=== PATIENT | male | born 1995 | race Caucasian/White ===

== ENCOUNTER 2020-12-18 06:03 | Emergency (ER) | payer MEDICAID, SELFPAY ==
--- NOTE | 2020-12-18 | ECG_ITS ---
Test Reason : CHEST PAIN Blood Pressure : / mmHG Vent. Rate : 051 BPM Atrial Rate : 051 BPM P-R Int : 166 ms QRS Dur : 088 ms QT Int : 410 ms P-R-T Axes : 062 074 050 degrees QTc Int : 377 ms Sinus bradycardia with marked sinus arrhythmia Early repolarization Otherwise normal ECG When compared with ECG of 18-DEC-2020 06:15, No significant change was found Referred By: Generic ED Physician Electronically Signed By:SEAMUS POLO MD
--- NOTE | ~2020-12-18 | XR_ITS ---
EXAMINATION: XR CHEST CLINICAL INFORMATION: Chest pain COMPARISON: None TECHNIQUE: 2 views of the chest were obtained. FINDINGS: No significant abnormality is noted involving the heart, lungs, mediastinum, bony thorax or soft tissues. XR/XR chest 2V IMPRESSION: Unremarkable chest examination.
[2020-12-18 06:13] VITALS: BP 121/64; PULSE 57; RESP 16; TEMP 36.7; O2SAT 99; BMI 29.6
--- NOTE | 2020-12-18 06:15 | ECG_ITS ---
Test Reason : CP Blood Pressure : / mmHG Vent. Rate : 060 BPM Atrial Rate : 060 BPM P-R Int : 162 ms QRS Dur : 086 ms QT Int : 372 ms P-R-T Axes : 052 075 044 degrees QTc Int : 372 ms Normal sinus rhythm with sinus arrhythmia Early repolarization Normal ECG No previous ECGs available Referred By: Elan Acharya Electronically Signed By:SEAMUS POLO MD
[2020-12-18 06:18] VITALS: PULSE 53
--- NOTE | 2020-12-18 06:41 | ED_ITS ---
HPI - Chest Pain General Chief Complaint: Chest Pain Stated Complaint: chest pain Time Seen by Provider: 12/18/20 06:27 Source: patient Mode of arrival: ambulatory Limitations: no limitations History of Present Illness HPI narrative: 25-year-old male who presents emergency department for evaluation of chest pain that occurred while he was working out at around 0515 hours. Patient states that his mother came over last night and COVID very spicy food, he ate this food around 8:00 p.m.. States that he got up this morning at 4:00 a.m. and he atepeanut butter and toast which is his usual breakfast. He then went to the gym to workout. He states that he took his usual pre workout supplement Lite . he states that he was doing his usual workout routine, he was bench pressing he developed pain in his left chest. States the pain came on gradually but then got progressively worse. The pain was a tightness which was constant and was 8/10. At the time of presentation, the pain is 5/10. He had associated nausea. He denied neck pain, jaw pain, arm pain, lightheadedness, dizziness, diaphoresis, shortness of breath or dyspnea on exertion. Patient denies like pain. He denies any long recent trips. Patient is vaccinated for COVID-19. He received his 2nd dose in October of 2020. Related Data Allergies Allergy/AdvReac Type Severity Reaction Status Date / Time No Known Allergies Allergy Verified 12/18/20 06:39 Review of Systems Review of Systems: Yes all other systems are reviewed and are negative [facility] Past Medical History [facility] Narrative: Past medical history: None . Past surgical history: None. Social history: Patient patient denies tobacco use. He states that he rarely drinks alcohol. He denies drug use. Social History Social History Advance Directives: No Physical Exam Vital Signs: Vital Signs: Last Vital Signs Temp 98.1 F 12/18/20 06:13 Pulse 46 L 12/18/20 10:00 Resp 16 12/18/20 10:00 BP 117/60 12/18/20 10:00 Pulse Ox 100 12/18/20 08:00 Body Mass Index 29.6 Const: General: cooperative and healthy appearing Orientation/consciousness: oriented to person and oriented to place Limit ations: no limitations HENMT: Head: Yes normal to inspection, Yes normocephalic and Yes atraumatic Ears: external ears normal General nose exam: Normal external nose present Face and sinus: Yes normal facial exam Mouth: Normal oral and palatal mucosa present Throat: Yes posterior oropharynx normal Eyes: Periorbital: periorbital findings normal Eyelids: Yes eyelids normal Conjunctivae: conjunctivae normal Sclerae: sclerae normal Corneas: corneas normal Pupils: Equal, round and reactive pupils present Direct Ophthalmoscopy: normal light reflex Neck: Neck: Yes full ROM, Yes no lymphadenopathy, Yes no meningeal signs, Yes trachea midline and Yes supple Chest: Chest palpation & inspection: normal inspection of the chest and tenderness ( left pectoralis muscles, L the posterior chest) Resp: Effort & Inspection: normal respiratory effort and able to speak in complete sentences Auscultation: clear to auscultation bilaterally Cardio: Rate: regular rate Rhythm: regular rhythm Heart sounds: S1 normal heart sound present, S2 normal heart sound present and no murmurs GI: Inspection: Yes normal to inspection Palpation (GI): Soft to palpation, nontender, no guarding, not rigid and No hepatosplenomegaly present : General: Yes no CVA tenderness Back/Spine/Pelvis: Back: no CVA tenderness Cervical Spine: normal cervical lordosis Thoracic/Lumbar Spine: thoracic and lumbar spine normal to inspection Skin: Lesions: no lesions Rashes: no rashes Wounds: no wounds Neuro: General: oriented to person, oriented to place and no meningeal signs Cranial nerves: Yes CN's II-XII intact bilaterally and Yes Equal, round and reactive pupils present Cognition (Neuro): normal cognition Motor exam (neuro): 5/5 motor strength present throughout Extrem: General: Yes normal to inspection and Yes full ROM Psych: Appearance: well kempt Mental Status: mental status grossly normal Speech and movement: Normal speech and movement present Affect: normal affect Attitude: cooperative Thought process: Normal thought process present Thought content: Normal thought content present Course Course Course Narrative: 25-year-old male who presents emergency department for evaluation of left-sided chest tenderness which began while he was lifting weights this morning. Patient's pain is a tightness which has been constant. Vital signs were normal. Physical examination revealed left anterior and posterior wall tenderness. Cardiac workup was ordered including a EKG and chest x-ray. Patient has no significant cardiac risk factors. His chest pain was treated with ibuprofen 600 mg orally. 0805: Patient's laboratory evaluation was unremarkable except for a detectable troponin at 5.7. Chest x-ray revealed no pneumothorax. I did discuss the elevated troponin with the patient, the patient will have a repeat 3 hour troponin at 10:00 a.m.. The patient had minimal pain relief with the oral ibuprofen. The patient was ordered to get 4 baby aspirin to chew and acetaminophen 975 mg orally. 1103: The patient's repeat EKG was unchanged from the 1st EKG. Repeat troponin was 7.2, this was not greater than 50% of the 1st troponin. At this time, I do not think the patient's pain is secondary to acute coronary syndrome and is most likely caused by costochondritis. I did discuss this with the patient. Patient was advised to take ibuprofen 600 mg 3 times a day for the next 4 days. The patient was given verbal and printed instructions prior to discharge. The patient was advised to follow-up with their PCP in 2 days and to return to the emergency department if their symptoms get worse or if they develop any new symptoms that are concerning to them MDM - Chest Pain Lab Data Result diagrams: 12/18/20 06:56 12/18/20 06:56 Labs: Lab Results 12/18/20 12/18/20 12/18/20 Range/Units 06:56 06:56 06:56 WBC 7.0 (4.8-10.8) X10*3/uL RBC 5.28 (4.60-5.80) X10*6/uL Hgb 14.3 (14.0-18.0) g/dl Hct 44.2 (42-52) % MCV 83.7 (80-98) fL MCH 27.1 (27.0-33.0) pg MCHC 32.4 (31.0-36.0) g/dl RDW 13.2 (11.0-16.0) % Plt Count 192 (160-400) X10*3/uL MPV 10.1 (9.4-12.4) fL Immature Gran % (Auto) 0.3 (0.0-0.4) % Neut % (Auto) 65.0 (45-73) % Lymph % (Auto) 20.7 (20-40) % [place] % (Auto) 12.6 H (2-11) % Eos % (Auto) 1.0 (0-4) % Baso % (Auto) 0.4 (0-2) % Lymph # (Auto) 1.4 (1.2-4.9) X10*3/uL [place] # (Auto) 0.9 (0.1-1.2) X10*3/uL Eos # (Auto) 0.1 (0.0-0.4) X10*3/uL Baso # (Auto) 0.0 (0.0-0.2) X10*3/uL Abs Immat Gran (auto) 0.02 (0.00-0.03) X10*3/uL Absolute Neuts (auto) 4.5 (2.0-8.3) X10*3/uL Absolute Nucleated RBC 0.000 (0.0-0.012) X10*3/uL Nucleated RBC % (auto) 0.0 (0.0-0.2) /100WBC Sodium 139 (135-145) mmol/L Potassium 4.4 (3.3-5.1) mmol/L Chloride 107 (96-108) mmol/L Carbon Dioxide 28 (22-29) mmol/L Anion Gap 8 L (12-20) BUN 23 H (9-16) mg/dL Creatinine 1.15 (0.5-1.4) mg/dL Estim Creat Clear Calc 103.6 Estimated GFR > 60 Random Glucose 99 (60-115) mg/dL Calcium 9.2 (8.4-10.2) mg/dL Total Bilirubin 0.6 (0.0-1.0) mg/dL AST 15 (5-37) U/L ALT 12 (0-40) U/L Alkaline Phosphatase 80 (39-117) U/L Troponin I High Sens 5.7 (<3.5-35.0) ng/L Total Protein 6.7 (6.5-8.0) g/dL Albumin 4.5 (3.5-5.0) g/dL 12/18/20 Range/Units 09:59 WBC (4.8-10.8) X10*3/uL RBC (4.60-5.80) X10*6/uL Hgb (14.0-18.0) g/dl Hct (42-52) % MCV (80-98) fL MCH (27.0-33.0) pg MCHC (31.0-36.0) g/dl RDW (11.0-16.0) % Plt Count (160-400) X10*3/uL MPV (9.4-12.4) fL Immature Gran % (Auto) (0.0-0.4) % Neut % (Auto) (45-73) % Lymph % (Auto) (20-40) % [place] % (Auto) (2-11) % Eos % (Auto) (0-4) % Baso % (Auto) (0-2) % Lymph # (Auto) (1.2-4.9) X10*3/uL [place] # (Auto) (0.1-1.2) X10*3/uL Eos # (Auto) (0.0-0.4) X10*3/uL Baso # (Auto) (0.0-0.2) X10*3/uL Abs Immat Gran (auto) (0.00-0.03) X10*3/uL Absolute Neuts (auto) (2.0-8.3) X10*3/uL Absolute Nucleated RBC (0.0-0.012) X10*3/uL Nucleated RBC % (auto) (0.0-0.2) /100WBC Sodium (135-145) mmol/L Potassium (3.3-5.1) mmol/L Chloride (96-108) mmol/L Carbon Dioxide (22-29) mmol/L Anion Gap (12-20) BUN (9-16) mg/dL Creatinine (0.5-1.4) mg/dL Estim Creat Clear Calc Estimated GFR Random Glucose (60-115) mg/dL Calcium (8.4-10.2) mg/dL Total Bilirubin (0.0-1.0) mg/dL AST (5-37) U/L ALT (0-40) U/L Alkaline Phosphatase (39-117) U/L Troponin I High Sens 7.2 (<3.5-35.0) ng/L Total Protein (6.5-8.0) g/dL Albumin (3.5-5.0) g/dL ECG Data ECG #1: Attestation: I personally reviewed and interpreted this ECG as follows: Interpretation: 0615: Normal sinus rhythm with a rate of 60, normal AR interval, QRS duration and QTC interval. Early repolarization changes, no ST segment elevation, no ST segment depression, no PACs, no PVCs, normal T-waves. This is a normal EKG for this patient's age. 0851: Sinus bradycardia with a rate of 51, early repolarization changes in 2, AVF, V4 through V6, no ST segment depression, no PACs, no PVCs, no change compared to the 1st EKG. Discharge Plan Discharge Clinical Impression: Acute costochondritis Patient Disposition: Home, Self-Care Instructions: Costochondritis (ED) Additional Instructions: You chest x-ray was normal. Your two 12 lead EKGs were unremarkable and normal. Your laboratory evaluation did reveal a detectable high sensitivity troponin but was not elevated. Your repeat high sensitivity troponin was not elevated by greater than 50% which is reassuring suggesting that have not had a heart can is the cause of your pain today. Take ibuprofen 200 mg pills, 3 pills every 6 hours for 4 days then as needed for pain. You can also take Tylenol (acetaminophen) 500 mg pills, 2 pills every 4 to 6 hours as needed for pain. Follow-up with your doctor in 2 days. Please return to the emergency department if your symptoms get worse or if you develop any symptoms that are concerning to you.
[2020-12-18] MEDS: Ibuprofen 600 MG TABLET PO (06:52)
[2020-12-18 07:02] LABS: MANUAL DIFF FLAG NO
[2020-12-18 07:03] LABS: Basophils Percent Auto 0.4 % (0-2); Eosinophils Absolute Auto 0.1 X10*3/uL (0.0-0.4); Hematocrit 44.2 % (42-52); Hemoglobin 14.3 g/dl (14.0-18.0); Imm Gran Abs Auto 0.02 X10*3/uL (0.00-0.03); Imm Gran Pct Auto 0.3 % (0.0-0.4); Lymphocytes Absolute Auto 1.4 X10*3/uL (1.2-4.9); Lymphocytes Percent Auto 20.7 % (20-40); Mean Corpuscular HGB Conc 32.4 g/dl (31.0-36.0); Mean Corpuscular Hemoglobin 27.1 pg (27.0-33.0); Mean Corpuscular Volume 83.7 fL (80-98); Mean Platelet Volume 10.1 fL (9.4-12.4); Monocytes Absolute Auto 0.9 X10*3/uL (0.1-1.2); Monocytes Percent Auto 12.6 % (2-11); Neutrophils Absolute Auto 4.5 X10*3/uL (2.0-8.3); Platelet Count 192 X10*3/uL (160-400); Red Blood Count 5.28 X10*6/uL (4.60-5.80); Red Cell Distribution Width 13.2 % (11.0-16.0)
[2020-12-18 07:40] LABS: Troponin-I High Sensitivity 5.7 ng/L (<3.5-35.0)
[2020-12-18 07:44] LABS: Alanine Aminotransferase 12 U/L (0-40); Albumin Level 4.5 g/dL (3.5-5.0); Alkaline Phosphatase 80 U/L (39-117); Anion Gap 8 (12-20); Aspartate Amino Transferase 15 U/L (5-37); Bilirubin Total 0.6 mg/dL (0.0-1.0); Blood Urea Nitrogen 23 mg/dL (9-16); Calcium 9.2 mg/dL (8.4-10.2); Carbon Dioxide 28 mmol/L (22-29); Chloride 107 mmol/L (96-108); Creatinine Clr Calc Pharmacy 103.6; Estimated Glomerular Filt Rate > 60; Glucose Random 99 mg/dL (60-115); Potassium 4.4 mmol/L (3.3-5.1); Sodium 139 mmol/L (135-145); Total Protein 6.7 g/dL (6.5-8.0)
[2020-12-18 08:00] VITALS: BP 120/57; PULSE 56; RESP 16; O2SAT 100
[2020-12-18] MEDS: Aspirin 81 MG TAB.CHEW 324 MG PO (08:12)
[2020-12-18] MEDS: Acetaminophen 325 MG TABLET 975 MG PO (08:13)
[2020-12-18 10:00] VITALS: BP 117/60; PULSE 46; RESP 16
[2020-12-18 10:34] LABS: Troponin-I High Sensitivity 7.2 ng/L (<3.5-35.0)
== END 2020-12-18 11:12 | disposition home or self-care (01) ==
PROVIDERS: Emergency Provider Emergency Medicine Emergency Medical Services
DX: M94.0 Chondrocostal junction syndrome [Tietze] (principal)
CPT/HCPCS: 36415; 71046; 80053; 84484; 85025; 93005; 99284; 99285